=== PATIENT | female | born 1975 | race Caucasian/White ===

== ENCOUNTER 2017-01-18 00:34 | Emergency (ER) | payer OTHER ==
[2017-01-18 00:41] VITALS: RESP 18
[2017-01-18] MEDS ORDERED: ONDANSETRON 4 MG/2 ML VIAL IVP STA (01:03)
[2017-01-18] MEDS ORDERED: HYDROmorphone 1 MG/ML 1 ML SYRINGE IVP STA (01:03)
[2017-01-18] MEDS ORDERED: KETOROLAC 30 MG/ML 1 ML VIAL IVP STA (01:03)
--- NOTE | 2017-01-18 01:25 | ED ---
General Adult HPI - General Chief complaint: Extremity Injury, Upper Stated complaint: R Arm Pain/Swelling Time Seen by Provider: 01/18/17 00:48 Source: patient Mode of arrival: ambulatory Limitations: no limitations - History of Present Illness Initial comments: 31-year-old female patient presents to emergency department today for complaints of right hand swelling and pain. Patient states that this started last evening. States that pain increases when she tries to extend her fingers. Patient did have similar symptoms in the left hand 4 days ago that has resolved. She denies any injury to the hand or arm. She states she did recently return from a vacation in [place], she did have some swelling to her bilateral lower extremities that resolved with elevation. Patient states that she has just felt generally unwell since returning from the trip. Patient denies any fever or chills. Any other current joint swelling, redness, or pain. She denies any other symptoms. - Related Data Home Medications Medication Instructions Recorded Confirmed Ibuprofen [Motrin] 3 tab PO Q6HR PRN 01/20/15 01/20/15 Previous Rx's Medication Instructions Recorded traMADol HCl [Ultram] 50 mg PO Q6H PRN #30 tab 01/21/15 methylPREDNISolone [Medrol Dose 4 mg PO DIRECTED #1 pack 01/18/17 Pack] traMADol HCl [Ultram] 50 mg PO Q4H PRN #20 tab 01/18/17 Allergies Allergy/AdvReac Type Severity Reaction Status Date / Time acetaminophen [From Vicodin] Allergy Nausea & Verified 01/20/15 10:56 Vomiting aspirin Allergy Rash/Hives Verified 01/20/15 10:56 codeine Allergy Nausea & Verified 01/20/15 10:56 Vomiting hydrocodone bitartrate Allergy Nausea & Verified 01/20/15 10:56 [From Vicodin] Vomiting meperidine HCl [From Demerol] Allergy Dyspnea Verified 01/20/15 10:56 Penicillins Allergy Rash/Hives Verified 01/20/15 10:56 Review of Systems ROS Statement: Those systems with pertinent positive or pertinent negative responses have been documented in the HPI. ROS Other: All systems not noted in ROS Statement are negative. Past Medical History Past Medical History: Hyperlipidemia Additional Past Medical History / Comment(s): BACK LIPOMA; LT CALF NEVUS. FEW VARICOSE VEINS. History of Any Multi-Drug Resistant Organisms: None Reported Past Surgical History: Orthopedic Surgery Additional Past Surgical History / Comment(s): RT 5TH FINGER SURG. Past Anesthesia/Blood Transfusion Reactions: No Reported Reaction Past Psychological History: Anxiety Additional Psychological History / Comment(s): NO TX Smoking Status: Current every day smoker Past Alcohol Use History: Occasional Additional Past Alcohol Use History / Comment(s): SMOKES 1 PPD Past Drug Use History: Marijuana Additional Drug Use History / Comment(s): DAILY EXCEPT NONE IN PAST WEEK - Past Family History Mother Family Medical History: Cancer General Exam Limitations: no limitations General appearance: alert, in no apparent distress Eye exam: Present: normal appearance, PERRL, EOMI. Absent: scleral icterus, conjunctival injection, periorbital swelling ENT exam: Present: normal exam, mucous membranes moist Neck exam: Present: normal inspection. Absent: tenderness, meningismus, lymphadenopathy Respiratory exam: Present: normal lung sounds bilaterally. Absent: respiratory distress, wheezes, rales, rhonchi, stridor Cardiovascular Exam: Present: regular rate, normal rhythm, normal heart sounds. Absent: systolic murmur, diastolic murmur, rubs, gallop, clicks GI/Abdominal exam: Present: soft, normal bowel sounds. Absent: distended, tenderness, guarding, rebound, rigid Extremities exam: Present: tenderness (Right hand, generalized tenderness.), normal capillary refill, other (Right hand and wrist show mild nonpitting edema. ) Neurological exam: Present: alert, oriented X3, CN II-XII intact Psychiatric exam: Present: normal affect, normal mood Skin exam: Present: warm, dry, intact, normal color. Absent: rash Course Vital Signs 01/18/17 00:39 Temperature 97.5 F L Pulse Rate 88 Respiratory 18 Rate Blood Pressure 135/88 O2 Sat by Pulse 99 Oximetry Medical Decision Making - Medical Decision Making 41-year-old female patient presents to emergency department stay for evaluation of right hand swelling and pain. Lab work was obtained and did show a rheumatoid factor of 88. The patient will be given IV Cytomel jaw. He'll be discharged with a prescription for pain medication and a Medrol Dosepak. Instructions to follow up with web offset press feeder Dr. Richard. Patient instructed to return for any new, worsening, or concerning symptoms. Patient verbalizes understanding and agrees to this plan. - Lab Data Result diagrams: 01/18/17 01:30 01/18/17 01:30 Lab Results 01/18/17 01/18/17 Range/Units 01:30 01:30 WBC 11.1 H (3.8-10.6) k/uL RBC 4.66 (3.80-5.40) m/uL Hgb 14.0 (11.4-16.0) gm/dL Hct 41.1 (34.0-46.0) % MCV 88.2 (80.0-100.0) fL MCH 30.1 (25.0-35.0) pg MCHC 34.1 (31.0-37.0) g/dL RDW 12.7 (11.5-15.5) % Plt Count 328 (150-450) k/uL Neutrophils % 70 % Lymphocytes % 17 % Monocytes % 7 % Eosinophils % 3 % Basophils % 1 % Neutrophils # 7.8 H (1.3-7.7) k/uL Lymphocytes # 1.9 (1.0-4.8) k/uL Monocytes # 0.8 (0-1.0) k/uL Eosinophils # 0.3 (0-0.7) k/uL Basophils # 0.1 (0-0.2) k/uL Sodium 139 (137-145) mmol/L Potassium 4.2 (3.5-5.1) mmol/L Chloride 103 (98-107) mmol/L Carbon Dioxide 28 (22-30) mmol/L Anion Gap 8 mmol/L BUN 13 (7-17) mg/dL Creatinine 0.90 (0.52-1.04) mg/dL Est GFR (MDRD) Af Amer >60 (>60 ml/min/1.73 sqM) Est GFR (MDRD) Non-Af >60 (>60 ml/min/1.73 sqM) Glucose 122 H (74-99) mg/dL Calcium 9.8 (8.4-10.2) mg/dL Total Bilirubin 0.3 (0.2-1.3) mg/dL AST 18 (14-36) U/L ALT 28 (9-52) U/L Alkaline Phosphatase 90 (38-126) U/L C-Reactive Protein 11.6 H (<10.0) mg/L Total Protein 6.4 (6.3-8.2) g/dL Albumin 3.6 (3.5-5.0) g/dL Rheumatoid Factor 88 H (<12) IU/mL Disposition Clinical Impression: Elevated rheumatoid factor, Swelling of right hand Disposition: HOME SELF-CARE Instructions: Arthritis (ED) Additional Instructions: Complete Medrol Dosepak in full. Take pain medications as directed. Follow-up with primary care physician for recheck. Make appointment with web offset press feeder for further evaluation. Prescriptions: methylPREDNISolone [Medrol Dose Pack] 4 mg PO DIRECTED #1 pack traMADol HCl [Ultram] 50 mg PO Q4H PRN #20 tab PRN Reason: Pain Referrals: Yossi Monique MD [Primary Care Provider] - 1-2 days Time of Disposition: 02:53
[2017-01-18 01:53] LABS: Basophils # (A) 0.1 k/uL (0-0.2); Basophils % (A) 1 %; CH 29.5; CHCM 33.5; Eosinophils # (A) 0.3 k/uL (0-0.7); Eosinophils % (A) 3 %; HCT 41.1 % (34.0-46.0); HDW 2.36; Luc # (Auto) 0.18; Luc % (Auto) 2; Lymphocytes # (A) 1.9 k/uL (1.0-4.8); Lymphocytes % (A) 17 %; MCH 30.1 pg (25.0-35.0); MCHC 34.1 g/dL (31.0-37.0); MCV 88.2 fL (80.0-100.0); Mean Platelet Volume 6.6; Monocytes # (A) 0.8 k/uL (0-1.0); Monocytes % (A) 7 %; Neutrophils # (A) 7.8 k/uL (1.3-7.7); Neutrophils % (A) 70 %; RBC 4.66 m/uL (3.80-5.40); RDW 12.7 % (11.5-15.5); WBC 11.1 k/uL (3.8-10.6); WBC (Perox) 11.24
[2017-01-18 02:09] LABS: ALT 28 U/L (9-52); AST 18 U/L (14-36); Alkaline Phosphatase 90 U/L (38-126); Anion Gap 8 mmol/L; Blood Urea Nitrogen 13 mg/dL (7-17); C Reactive Protein 11.6 mg/L (<10.0); Calcium 9.8 mg/dL (8.4-10.2); Carbon Dioxide 28 mmol/L (22-30); Chloride 103 mmol/L (98-107); Glucose 122 mg/dL (74-99); Non-African American GFR(MDRD) >60 (>60 ml/min/1.73 sqM); Potassium 4.2 mmol/L (3.5-5.1); Rheumatoid Factor, Qnt 88 IU/mL (<12); Sodium 139 mmol/L (137-145); Total Bilirubin 0.3 mg/dL (0.2-1.3); Total Protein 6.4 g/dL (6.3-8.2)
[2017-01-18] MEDS ORDERED: methylPREDNISolone SOD SUCCI 125 MG/2 ML VIAL IV STA (02:47)
[2017-01-18 03:13] VITALS: BP 115/69; PULSE 76; TEMP 97.8
== END 2017-01-18 03:20 | disposition home or self-care (01) ==
LOC: EC 00:34
DX: R76.8 Other specified abnormal immunological findings in serum (principal); M79.89 Other specified soft tissue disorders; F17.200 Nicotine dependence, unspecified, uncomplicated; Z86.018 Personal history of other benign neoplasm; Z53.20 Procedure and treatment not carried out because of patient's decision for unspecified reasons; Z88.5 Allergy status to narcotic agent; Z88.6 Allergy status to analgesic agent; Z88.0 Allergy status to penicillin
CPT/HCPCS: 99283; 96374; 96375 ×2; 36415; 80053; 85025; 86140; 86431; 86038; J2930; J2405; J1885

== ENCOUNTER 2019-04-06 19:39 | Emergency (ER) | payer OTHER ==
[2019-04-06 19:49] VITALS: RESP 16
[2019-04-06] MEDS ORDERED: IBUPROFEN 600 MG TAB PO STA (20:33)
[2019-04-06] MEDS ORDERED: methylPREDNISolone SOD SUCCI 125 MG/2 ML VIAL IM STA (20:33)
[2019-04-06] MEDS ORDERED: predniSONE 50 MG TAB PO STA (20:35)
--- NOTE | 2019-04-06 20:55 | ED ---
General Adult HPI - General Chief complaint: Extremity Problem,Nontraumatic Stated complaint: RA Pain Time Seen by Provider: 04/06/19 20:00 Source: patient, RN notes reviewed, old records reviewed Mode of arrival: ambulatory - History of Present Illness Initial comments: 43-year-old female patient past history of rheumatoid arthritis presents to ED for reported R exacerbation. Patient reports that last 2 days she has had pain in her hands and wrists extending up her arm. Patient states that this feels similar to her that she experienced in the past. Patient currently on met hotrexate for this. Patient has follow-up with special events coordinator. Patient denies any other complaints. Denies any chest pain shortness with abdominal pain nausea vomiting or diarrhea. Denies any fevers or chills. Systemic: Pt denies fatigue, fever/chills, rash. Pt denies weakness, night sweats, weight loss. Neuro: Pt denies headache, visual disturbances, syncope or pre-syncope. HEENT: Pt denies ocular discharge or irritation, otalgia, rhinorrhea, pharyngitis or notable lymphadenopathy. Cardiopulmonary: Pt denies chest pain, SOB, heart palpitations, dyspnea on exertion. Abdominal/GI: Pt denies abdominal pain, n/v/d. : Pt denies dysuria, burning w/ urination, frequency/urgency. Denies new onset urinary or bowel incontinence. MSK: Pt denies loss of strength or function in extremities. Neuro: Pt denies new onset weakness, paresthesias. - Related Data Home Medications Medication Instructions Recorded Confirmed Folic Acid 1 mg PO DAILY 04/06/19 04/06/19 Methotrexate Sodium [Methotrexate] 15 mg PO TU 04/06/19 04/06/19 Previous Rx's Medication Instructions Recorded predniSONE 50 mg PO DAILY #4 tab 04/06/19 Allergies Allergy/AdvReac Type Severity Reaction Status Date / Time acetaminophen [From Vicodin] Allergy Nausea & Verified 04/06/19 20:01 Vomiting aspirin Allergy Rash/Hives Verified 04/06/19 20:01 codeine Allergy Nausea & Verified 04/06/19 20:01 Vomiting hydrocodone bitartrate Allergy Nausea & Verified 04/06/19 20:01 [From Vicodin] Vomiting meperidine HCl [From Demerol] Allergy Dyspnea Verified 04/06/19 20:01 Penicillins Allergy Rash/Hives Verified 04/06/19 20:01 Review of Systems ROS Statement: Those systems with pertinent positive or pertinent negative responses have been documented in the HPI. ROS Other: All systems not noted in ROS Statement are negative. Past Medical History Past Medical History: Hyperlipidemia Additional Past Medical History / Comment(s): BACK LIPOMA; LT CALF NEVUS. FEW VARICOSE VEINS. History of Any Multi-Drug Resistant Organisms: None Reported Past Surgical History: Orthopedic Surgery Additional Past Surgical History / Comment(s): RT 5TH FINGER SURG. Past Anesthesia/Blood Transfusion Reactions: No Reported Reaction Past Psychological History: Anxiety Smoking Status: Current every day smoker Past Alcohol Use History: Occasional Past Drug Use History: Marijuana - Past Family History Mother Family Medical History: Cancer General Exam - General Exam Comments Initial Comments: Constitutional: NAD, AOX3, Pt has pleasant affect. HEENT: NC/AT, trachea midline, neck supple, no lymphadenopathy. Posterior p harynx non erythematous, without exudates. External ears appear normal, without discharge. Mucous membranes moist. Eyes PERRLA, EOM intact. There is no scleral icterus. No pallor noted. Cardiopulmonary: RRR, no murmurs, rubs or gallops, no JVD noted. Lungs CTAB in anterior and posterior gorman. No peripheral edema. Abdominal exam: Abdomen soft and non-distended. Abdomen non-tender to palpation in all 4 quadrants. Bowel sounds active in LLQ. No hepatosplenomegaly. No ecchymosis Neuro: CN II-XII grossly intact. No nuchal rigidity. No raccon eyes, no jeronimo sign, no hemotympanum. No cervical spinal tenderness. MSK: Right hand and wrist mildly tender to palpation. Pain with range of motion. Range of motion slightly limited secondary to pain. No erythema. Cap refill less than 2 seconds, radial pulse +2. Sensation intact. No posterior calf tenderness bilaterally, homans sign negative bilaterally. Posterior tibialis and radial pulse +2 bilaterally. Sensation intact in upper and lower extremities. Full active ROM in upper and lower extremities, 5/5 stregnth. Course Vital Signs 04/06/19 19:47 Temperature 98.2 F Pulse Rate 93 Respiratory 16 Rate Blood Pressure 125/79 O2 Sat by Pulse 100 Oximetry Medical Decision Making - Medical Decision Making 43-year-old female patient past history of rheumatoid arthritis presents to ED for reported R exacerbation. Patient reports that last 2 days she has had pain in her hands and wrists extending up her arm. Patient states that this feels similar to her that she experienced in the past. Patient currently on methotrexate for this. Patient has follow-up with special events coordinator. Patient denies any other complaints. Denies any chest pain shortness with abdominal pain nausea vomiting or diarrhea. Denies any fevers or chills. Pt VSS, afebrile. Physical exam displayed: Right hand and wrist mildly tender to palpation. Pain with range of motion. Range of motion slightly limited secondary to pain. No erythema. Cap refill less than 2 seconds, radial pulse +2. Sensation intact. Patient denied any imaging. Patient placed on steroid burst. We'll follow up with special events coordinator and primary care provider tomorrow. At patient request pt giving one dose of morphine in ED. Pt states that she gets nausea and occasional itching from codeine but does not have true allergy. Case discussed with Dr. Dowling. Disposition Clinical Impression: Arthralgia Disposition: HOME SELF-CARE Condition: Stable Instructions (If sedation given, give patient instructions): Arthralgia (ED) Additional Instructions: Patient to adhere to previously discussed treatment plan and will take medication(s) as directed. Patient to follow up with PCP in 1-2 days. Patient to return to ED if symptoms do not improve. Follow up with special events coordinator and PCP tomorrow. Return to ER if condition worsens. Prescriptions: predniSONE 50 mg PO DAILY #4 tab Is patient prescribed a controlled substance at d/c from ED?: No Referrals: Yossi Monique MD [Primary Care Provider] - 1-2 days
[2019-04-06] MEDS ORDERED: MORPHINE SULFATE 4 MG/ML SYRINGE IM STA (21:15)
[2019-04-06 22:15] VITALS: BP 122/87; PULSE 90; TEMP 98.1
== END 2019-04-06 22:14 | disposition home or self-care (01) ==
LOC: EC 19:39
DX: M25.50 Pain in unspecified joint (principal); M06.9 Rheumatoid arthritis, unspecified; F17.200 Nicotine dependence, unspecified, uncomplicated; Z79.899 Other long term (current) drug therapy; Z88.0 Allergy status to penicillin; Z88.5 Allergy status to narcotic agent; Z88.6 Allergy status to analgesic agent
CPT/HCPCS: 99283; 96372; J2270; J7512

== ENCOUNTER 2022-05-27 22:55 | Emergency (ER) | payer OTHER ==
[2022-05-27 23:03] VITALS: BP 103/74; PULSE 46; RESP 16; TEMP 97.9
[2022-05-27] MEDS ORDERED: DIPH,PERTUS(ACELL)TETVAC-LF 0.5 ML VIAL IM ONE (23:20)
[2022-05-27] MEDS ORDERED: LIDOCAINE 1% INJ 10MG/ML (20 ML MDV) SQ ONE (23:20)
--- NOTE | 2022-05-28 00:08 | ED ---
Wound/Laceration HPI - General Chief Complaint: Wound/Laceration Stated Complaint: Laceration Right Leg Time Seen by Provider: 05/27/22 23:17 Source: patient Mode of arrival: ambulatory Limitations: no limitations - History of Present Illness Initial Comments: Patient is a 46-year-old female presenting with chief complaint of right leg laceration. Patient states that she was outside chasing her dogs when she scraped the leg on a piece avoid on the ground. Patient does not remember when her last tetanus shot was. She has full range of motion of the extremity. No numbness, tingling, weakness, redness, swelling. - Related Data Home Medications Medication Instructions Recorded Confirmed Folic Acid 1 mg PO DAILY 04/06/19 04/06/19 metHOTREXate sodium [Methotrexate] 15 mg PO TU 04/06/19 04/06/19 Previous Rx's Medication Instructions Recorded predniSONE 50 mg PO DAILY #4 tab 04/06/19 Allergies Allergy/AdvReac Type Severity Reaction Status Date / Time acetaminophen [From Vicodin] Allergy Nausea & Verified 05/27/22 23:03 Vomiting aspirin Allergy Rash/Hives Verified 05/27/22 23:03 codeine Allergy Nausea & Verified 05/27/22 23:03 Vomiting hydrocodone bitartrate Allergy Nausea & Verified 05/27/22 23:03 [From Vicodin] Vomiting meperidine HCl [From Demerol] Allergy Dyspnea Verified 05/27/22 23:03 Penicillins Allergy Rash/Hives Verified 05/27/22 23:03 Review of Systems ROS Statement: Those systems with pertinent positive or pertinent negative responses have been documented in the HPI. ROS Other: All systems not noted in ROS Statement are negative. Past Medical History Past Medical History: Hyperlipidemia Additional Past Medical History / Comment(s): BACK LIPOMA; LT CALF NEVUS. FEW VARICOSE VEINS. History of Any Multi-Drug Resistant Organisms: None Reported Past Surgical History: Orthopedic Surgery Additional Past Surgical History / Comment(s): RT 5TH FINGER SURG. Past Anesthesia/Blood Transfusion Reactions: No Reported Reaction Past Psychological History: Anxiety Smoking Status: Current every day smoker Past Alcohol Use History: Occasional Past Drug Use History: Marijuana - Past Family History Mother Family Medical History: Cancer General Exam Limitations: no limitations General appearance: alert, in no apparent distress Head exam: Present: atraumatic, normocephalic, normal inspection Eye exam: Present: normal appearance, EOMI. Absent: scleral icterus, periorbital swelling Neck exam: Present: normal inspection Right Lower Leg exam: Present: laceration (4 cm) Neurological exam: Present: alert, oriented X3, CN II-XII intact Psychiatric exam: Present: normal affect, normal mood Course Vital Signs 05/27/22 23:01 Temperature 97.9 F Pulse Rate 46 L Respiratory 16 Rate Blood Pressure 103/74 O2 Sat by Pulse 99 Oximetry Procedures - Laceration Laceration #1 Consent Obtained: verbal consent Indication: laceration Site: lower extremity Size (cm): 4 Description: linear Depth: simple, single layer Anesthetic Used: lidocaine 1%, without epi Anesthesia Technique: local infiltration Amount (mls): 3 Pre-repair: wound explored, irrigated extensively Type of Sutures: nylon Size of Sutures: 4-0 Number of Sutures: 3 Technique: simple, interrupted Patient Tolerated Procedure: well Medical Decision Making - Medical Decision Making Patient is a 46-year-old female presenting with chief complaint of right leg laceration. She cut her leg on a piece of foot on the ground when chasing her dog's. Does not on her last tetanus vaccination was on examination there is a 4 cm laceration to the right lower leg. No obvious foreign body, full range of motion and sensation is intact. Patient's tetanus was updated. Wound was an esthetized with 1% lidocaine, irrigated with 1 L sterile water, and 3 simple interrupted sutures were placed using 4-0 nylon. Instructed on wound care. Sutures may be removed in 10-14 days. Follow-up with PCP. Report back to ER with any new or worsening symptoms. Discussed return parameters and answered all questions. Patient conveyed verbal understanding and agreed to the plan. I discussed this case with my attending Dr. Barrow. Disposition Clinical Impression: Laceration Disposition: HOME SELF-CARE Condition: Good Instructions (If sedation given, give patient instructions): Care For Your Stitches (ED), Laceration (ED) Additional Instructions: Sutures may be removed in 10-14 days, this can be done here, your PCP, or at a local urgent care. Keep the wound clean and dry. Avoid submerging the wound. Clean with soap and water. Monitor for any signs of infection, including but not limited to redness, swelling, warmth, pain, discharge, fever, chills. Report back to ER if any new or worsening symptoms. Follow-up with PCP. Is patient prescribed a controlled substance at d/c from ED?: No Referrals: Yossi Monique MD [Primary Care Provider] - 1-2 days Time of Disposition: 00:08
== END 2022-05-28 00:24 | disposition home or self-care (01) ==
LOC: EC 22:55
DX: S81.811A Laceration without foreign body, right lower leg, initial encounter (principal); W54.8XXA Other contact with dog, initial encounter; Z88.6 Allergy status to analgesic agent; Z88.8 Allergy status to other drugs, medicaments and biological substances; Z88.0 Allergy status to penicillin; E78.5 Hyperlipidemia, unspecified; F17.200 Nicotine dependence, unspecified, uncomplicated
CPT/HCPCS: 90715; 12002; 99282; 90471; J2001

== ENCOUNTER 2023-08-28 20:51 | Emergency (ER) | payer OTHER ==
[2023-08-28] MEDS ORDERED: SODIUM CHLORIDE 0.9% 1,000 ML IV STA (21:17)
[2023-08-28] MEDS ORDERED: ONDANSETRON 4 MG/2 ML VIAL IVP STA (21:17)
[2023-08-28] MEDS ORDERED: KETOROLAC 15 MG/ML 1 ML VIAL IVP STA (21:18)
[2023-08-28 21:20] VITALS: TEMP 98.2
--- NOTE | 2023-08-28 21:46 | ED ---
Back Pain HPI - General Chief Complaint: Back Pain/Injury Stated Complaint: Kidney Pain, Unable to Urinate Time Seen by Provider: 08/28/23 21:04 Source: patient, RN notes reviewed Mode of arrival: ambulatory Limitations: no limitations - History of Present Illness Initial Comments: This is a 48 year old female who presents to the emergency department for left sided back pain. States that this started about 3 days ago. This does not wrap around into her abdomen. She does report nausea and a decreased appetite. States that she is trying to drink plenty of fluids and feels like she is not able to urinate as much as she should. Denies any injuries. Denies any history of kidney stones or similar problems in the past. MD Complaint: back pain - Related Data Home Medications Medication Instructions Recorded Confirmed Folic Acid 1 mg PO DAILY 04/06/19 04/06/19 metHOTREXate sodium [Methotrexate] 15 mg PO TU 04/06/19 04/06/19 Previous Rx's Medication Instructions Recorded predniSONE 50 mg PO DAILY #4 tab 04/06/19 Ciprofloxacin HCl 500 mg PO BID 7 Days #14 tablet 08/29/23 Ketorolac [Toradol] 10 mg PO Q6HR PRN #15 tab 08/29/23 Ondansetron Odt [Zofran Odt] 4 mg PO Q8HR PRN #15 tab 08/29/23 Allergies Allergy/AdvReac Type Severity Reaction Status Date / Time acetaminophen [From Vicodin] Allergy Nausea & Verified 05/27/22 23:03 Vomiting aspirin Allergy Rash/Hives Verified 05/27/22 23:03 codeine Allergy Nausea & Verified 05/27/22 23:03 Vomiting hydrocodone bitartrate Allergy Nausea & Verified 05/27/22 23:03 [From Vicodin] Vomiting meperidine HCl [From Demerol] Allergy Dyspnea Verified 05/27/22 23:03 Penicillins Allergy Rash/Hives Verified 05/27/22 23:03 Review of Systems ROS Statement: Those systems with pertinent positive or pertinent negative responses have been documented in the HPI. ROS Other: All systems not noted in ROS Statement are negative. Past Medical History Past Medical History: Hyperlipidemia Additional Past Medical History / Comment(s): BACK LIPOMA; LT CALF NEVUS. FEW VARICOSE VEINS. History of Any Multi-Drug Resistant Organisms: None Reported Past Surgical History: Orthopedic Surgery Additional Past Surgical History / Comment(s): RT 5TH FINGER SURG. Past Anesthesia/Blood Transfusion Reactions: No Reported Reaction Past Psychological History: Anxiety Smoking Status: Current every day smoker Past Alcohol Use History: Occasional Past Drug Use History: Marijuana - Past Family History Mother Family Medical History: Cancer General Exam Limitations: no limitations General appearance: alert, in no apparent distress Head exam: Present: atraumatic, normocephalic, normal inspection Respiratory exam: Present: normal lung sounds bilaterally. Absent: respiratory distress, wheezes, rales, rhonchi, stridor Cardiovascular Exam: Present: regular rate, normal rhythm, normal heart sounds. Absent: systolic murmur, diastolic murmur, rubs, gallop, clicks GI/Abdominal exam: Present: soft, normal bowel sounds. Absent: distended, tenderness, guarding, rebound, rigid Back exam: Present: CVA tenderness (L). Absent: CVA tenderness (R) Neurological exam: Present: alert, oriented X3, CN II-XII intact Psychiatric exam: Present: normal affect, normal mood Skin exam: Present: warm, dry, intact, normal color. Absent: rash Course Vital Signs 08/28/23 08/28/23 08/28/23 20:57 22:31 23:58 Temperature 98.2 F Pulse Rate 112 H 89 77 Respiratory 18 16 Rate Blood Pressure 105/72 111/61 O2 Sat by Pulse 100 99 96 Oximetry Medical Decision Making - Medical Decision Making This is a 48-year-old female who presents to the emergency department for left- sided back pain. Was pt. sent in by a medical professional or institution? @ -No Did you speak to anyone other than the patient for history? @ -No Did you review nursing and triage notes? @ -Yes, and I agree, it is accurate with regards to the patient's symptoms. Were old charts reviewed? @ -No Differential Diagnosis? @ -Differential Back Pain: Strain, zoster, cauda equina syndrome, epidural abscess, vertebral osteomyeli tis, discitis, fracture, subluxation, disc herniation, DJD, spinal stenosis, dissection, AAA, pancreatitis, peptic ulcer disease, pyelonephritis, kidney stone, this is not meant to be an all-inclusive list. EKG interpreted by me (3pts min.)? @ -Not obtained X-rays interpreted by me (1pt min.)? @ -Not obtained CT interpreted by me (1pt min.)? @ -Computed tomography scan of the abdomen and pelvis obtained. My interpretation identifies no evidence of a ureteral calculus. U/S interpreted by me (1pt. min.)? @ -Not obtained What testing was considered but not performed? (CT, X-rays, U/S, labs)? Why? @ -None What meds were considered but not given? Why? @ -None Did you discuss the management of the patient with other professionals? @ -No Did you reconcile home meds? @ -No Was smoking cessation discussed for >3mins.? @ -No Was critical care preformed (if so, how long)? @ -No Were there social determinants of health that impacted care today? How? (Homelessness, low income, unemployed, alcoholism, drug addiction, transportation, low edu. Level, literacy, decrease access to med. care, senior care, rehab)? @ -No Was there de-escalation of care discussed even if they declined? (Discuss DNR or withdrawal of care, Hospice)? @ -No What co-morbidities impacted this encounter? (DM, HTN, Smoking, COPD, CAD, Cancer, CVA, Hep., AIDS, mental health diagnosis, sleep apnea, morbid obesity)? @ -None Was patient admitted / discharged? @ -Discharged. Lab work obtained revealing leukocytosis and no other actionable findings. Urinalysis was positive for infection and was sent for culture. Computed tomography scan of the abdomen and pelvis obtained demonstrating mild fullness of the left renal collecting system and no evidence of a ureteral calculus. Findings reviewed with the patient. Given the urinalysis findings with the leukocytosis and left flank pain, symptoms are suggestive of a pyelonephritis. She was given a dose of ceftriaxone in the emergency department. Her symptoms were otherwise well controlled with Toradol, Zofran, and IV fluids, and she felt stable for discharge home at that point. Prescription for ciprofloxacin, Toradol, and Zofran provided with dosing instructions reviewed. She is advised to have close follow-up with her primary care provider for reevaluation. Undiagnosed new problem with uncertain prognosis? @ -None Drug Therapy requiring intensive monitoring for toxicity (Heparin, Nitro, Insulin, Cardizem)? @ -None Were any procedures done? @ -None Diagnosis/symptom? @ -Pyelonephritis Acute, or Chronic, or Acute on Chronic? @ -Acute Uncomplicated (without systemic symptoms) or Complicated (systemic symptoms)? @ -Uncomplicated Side effects of treatment? @ -None Exacerbation, Progression, or Severe Exacerbation] @ -Not applicable Poses a threat to life or bodily function? @ -Unlikely Return precautions reviewed in depth, the patient is instructed to return to the emergency department with any new, worsening, or concerning symptoms. Patient verbalized understanding. This case was discussed in detail with the attending ED physician, Dr. Hammonds. Presentation, findings, and treatment plan discussed in detail as well. - Lab Data Result diagrams: 08/28/23 21:08/28/23 21: Lab Results 08/28/23 08/28/23 08/28/23 Range/Units : 21:: WBC 14.0 H (3.8-10.6) k/uL RBC 4.20 (3.80-5.40) m/uL Hgb 13.2 (11.4-16.0) gm/dL Hct 37.9 (34.0-46.0) % MCV 90.2 (80.0-100.0) fL MCH 31.3 (25.0-35.0) pg MCHC 34.7 (31.0-37.0) g/dL RDW 12.4 (11.5-15.5) % Plt Count 226 (150-450) k/uL MPV 7.7 Neutrophils % 85 % Lymphocytes % 5 % Monocytes % 8 % Eosinophils % 1 % Basophils % 0 % Neutrophils # 11.8 H (1.3-7.7) k/uL Lymphocytes # 0.6 L (1.0-4.8) k/uL Monocytes # 1.1 H (0-1.0) k/uL Eosinophils # 0.2 (0-0.7) k/uL Basophils # 0.0 (0-0.2) k/uL Sodium 133 L (137-145) mmol/L Potassium 3.7 (3.5-5.1) mmol/L Chloride 105 (98-107) mmol/L Carbon Dioxide 19 L (22-30) mmol/L Anion Gap 9 mmol/L BUN 20 H (7-17) mg/dL Creatinine 0.69 (0.52-1.04) mg/dL Est GFR (CKD-EPI)AfAm >90 (>60 ml/min/1.73 sqM) Est GFR (CKD-EPI)NonAf >90 (>60 ml/min/1.73 sqM) Glucose 119 H (74-99) mg/dL Plasma Lactic Acid Saud (0.7-2.0) mmol/L Calcium 9.0 (8.4-10.2) mg/dL Total Bilirubin 0.5 (0.2-1.3) mg/dL AST 30 (14-36) U/L ALT 32 (4-34) U/L Alkaline Phosphatase 97 (38-126) U/L Total Protein 6.4 (6.3-8.2) g/dL Albumin 3.6 (3.5-5.0) g/dL Amylase 52 (30-110) U/L Lipase 113 (23-300) U/L HCG, Qual Not Detected Urine Color Colorless Urine Appearance Cloudy H (Clear) Urine pH 5.5 (5.0-8.0) Ur Specific [place] 1.011 (1.001-1.035) Urine Protein Trace H (Negative) Urine Glucose (UA) Negative (Negative) Urine Ketones Negative (Negative) Urine Blood Negative (Negative) Urine Nitrite Positive H (Negative) Urine Bilirubin Negative (Negative) Urine Urobilinogen <2.0 (<2.0) mg/dL Ur Leukocyte Esterase Small H (Negative) Urine RBC 1 (0-5) /hpf Urine WBC 17 H (0-5) /hpf Ur Squamous Epith Cells 26 H (0-4) /hpf Urine Bacteria Many H (None) /hpf Hyaline Casts 3 H (0-2) /lpf Urine Mucus Rare H (None) /hpf 08/28/23 Range/Units 21:28 WBC (3.8-10.6) k/uL RBC (3.80-5.40) m/uL Hgb (11.4-16.0) gm/dL Hct (34.0-46.0) % MCV (80.0-100.0) fL MCH (25.0-35.0) pg MCHC (31.0-37.0) g/dL RDW (11.5-15.5) % Plt Count (150-450) k/uL MPV Neutrophils % % Lymphocytes % % Monocytes % % Eosinophils % % Basophils % % Neutrophils # (1.3-7.7) k/uL Lymphocytes # (1.0-4.8) k/uL Monocytes # (0-1.0) k/uL Eosinophils # (0-0.7) k/uL Basophils # (0-0.2) k/uL Sodium (137-145) mmol/L Potassium (3.5-5.1) mmol/L Chloride (98-107) mmol/L Carbon Dioxide (22-30) mmol/L Anion Gap mmol/L BUN (7-17) mg/dL Creatinine (0.52-1.04) mg/dL Est GFR (CKD-EPI)AfAm (>60 ml/min/1.73 sqM) Est GFR (CKD-EPI)NonAf (>60 ml/min/1.73 sqM) Glucose (74-99) mg/dL Plasma Lactic Acid Saud 0.7 (0.7-2.0) mmol/L Calcium (8.4-10.2) mg/dL Total Bilirubin (0.2-1.3) mg/dL AST (14-36) U/L ALT (4-34) U/L Alkaline Phosphatase (38-126) U/L Total Protein (6.3-8.2) g/dL Albumin (3.5-5.0) g/dL Amylase (30-110) U/L Lipase (23-300) U/L HCG, Qual Urine Color Urine Appearance (Clear) Urine pH (5.0-8.0) Ur Specific [place] (1.001-1.035) Urine Protein (Negative) Urine Glucose (UA) (Negative) Urine Ketones (Negative) Urine Blood (Negative) Urine Nitrite (Negative) Urine Bilirubin (Negative) Urine Urobilinogen (<2.0) mg/dL Ur Leukocyte Esterase (Negative) Urine RBC (0-5) /hpf Urine WBC (0-5) /hpf Ur Squamous Epith Cells (0-4) /hpf Urine Bacteria (None) /hpf Hyaline Casts (0-2) /lpf Urine Mucus (None) /hpf - Radiology Data Radiology results: report reviewed, image reviewed Disposition Clinical Impression: Pyelonephritis Disposition: HOME SELF-CARE Instructions (If sedation given, give patient instructions): Urinary Tract Infection in Women (ED), Kidney Infection (ED) Additional Instructions: Return to the emergency department with any new, worsening, or concerning symptoms. Take the antibiotic as prescribed for 7 days. Take the Toradol with Tylenol as needed for pain relief. If you choose to take the Toradol, do not take any other anti-inflammatories such as ibuprofen, take one or the other. Take the Zofran up to every 8 hours as needed for nausea and vomiting. Follow up with your primary care provider in 1-2 days. Prescriptions: Ciprofloxacin HCl 500 mg PO BID 7 Days #14 tablet Ketorolac [Toradol] 10 mg PO Q6HR PRN #15 tab PRN Reason: Pain Ondansetron Odt [Zofran Odt] 4 mg PO Q8HR PRN #15 tab PRN Reason: Nausea And Vomiting Is patient prescribed a controlled substance at d/c from ED?: No Referrals: None,Stated [Primary Care Provider] - 1-2 days
[2023-08-28 22:00] LABS: Basophils % (A) 0 %; Eosinophils # (A) 0.2 k/uL (0-0.7); Eosinophils % (A) 1 %; HCT 37.9 % (34.0-46.0); HGB 13.2 gm/dL (11.4-16.0); Lymphocytes # (A) 0.6 k/uL (1.0-4.8); Lymphocytes % (A) 5 %; MCH 31.3 pg (25.0-35.0); MCHC 34.7 g/dL (31.0-37.0); MCV 90.2 fL (80.0-100.0); Mean Platelet Volume 7.7; Monocytes # (A) 1.1 k/uL (0-1.0); Monocytes % (A) 8 %; Neutrophils # (A) 11.8 k/uL (1.3-7.7); Neutrophils % (A) 85 %; Platelet Count 226 k/uL (150-450); RDW 12.4 % (11.5-15.5)
[2023-08-28 22:09] LABS: ALT 32 U/L (4-34); AST 30 U/L (14-36); African American GFR (CKD) >90 (>60 ml/min/1.73 sqM); Albumin 3.6 g/dL (3.5-5.0); Alkaline Phosphatase 97 U/L (38-126); Amylase 52 U/L (30-110); Anion Gap 9 mmol/L; Blood Urea Nitrogen 20 mg/dL (7-17); Carbon Dioxide 19 mmol/L (22-30); Chloride 105 mmol/L (98-107); Glucose 119 mg/dL (74-99); Lipase 113 U/L (23-300); Non-African American GFR(CKD) >90 (>60 ml/min/1.73 sqM); Potassium 3.7 mmol/L (3.5-5.1); Sodium 133 mmol/L (137-145); Total Bilirubin 0.5 mg/dL (0.2-1.3); Total Protein 6.4 g/dL (6.3-8.2)
[2023-08-28 22:28] LABS: HCG,Qualitative Serum Not Detected
[2023-08-28 22:38] VITALS: BP 111/61; RESP 16
[2023-08-28 23:09] LABS: Appearance,Urine Cloudy (Clear); Bacteria,Urine Many /hpf; Bilirubin,Urine Negative (Negative); Blood,Urine Negative (Negative); Color,Urine Colorless; Glucose,Urine (UA) Negative (Negative); Hyaline Casts,Urine 3 /lpf (0-2); Ketones,Urine Negative (Negative); Leukocyte Esterase,Urine Small (Negative); Mucus,Urine Rare /hpf; Nitrite,Urine Positive (Negative); PH, Urine 5.5 (5.0-8.0); Protein,Urine Trace (Negative); RBC,Urine 1 /hpf (0-5); Specific Gravity,Urine 1.011 (1.001-1.035); Squamous Epithelial Cell,Urine 26 /hpf (0-4); Urobilinogen,Urine <2.0 mg/dL (<2.0); WBC,Urine 17 /hpf (0-5)
[2023-08-28] MEDS ORDERED: cefTRIAXone IN SWFI 1,000 MG/10 ML SYRINGE IVP STA (23:18)
[2023-08-29 00:26] VITALS: PULSE 77
[2023-08-29] MEDS ORDERED: traMADol 50 MG STARTER PACK 3 TAB BTL PO STA (00:31)
[2023-08-29] MEDS ORDERED: ONDANSETRON 4 MG ODT STARTER PACK 2 TAB BTL PO STA (00:33)
--- NOTE | 2023-08-29 00:35 | CT ---
EXAM: CT Abdomen and Pelvis Without Intravenous Contrast CLINICAL HISTORY: ITS.REASON CT Reason: Left flank pain TECHNIQUE: Axial computed tomography images of the abdomen and pelvis without intravenous contrast. CTDI is 8.36 mGy and DLP is 491.5 mGy-cm. This CT exam was performed using one or more of the following dose reduction techniques: automated exposure control, adjustment of the mA and/or kV according to patient size, and/or use of iterative reconstruction technique. COMPARISON: No relevant prior studies available. FINDINGS: Lung bases: Unremarkable. No mass. No consolidation. ABDOMEN: Liver: Unremarkable. No focal hepatic lesion. Gallbladder and bile ducts: Contracted gallbladder. No calcified stones. No ductal dilation. Pancreas: Unremarkable. No ductal dilation. Spleen: Unremarkable. Normal spleen. Adrenals: Unremarkable. No mass. Kidneys and ureters: No renal stones or hydronephrosis. Minimal fullness of the left renal collecting system. Evaluation of the ureter is limited. Consider CT urogram confirm no ureteral stone. No stone at the UVJ. Stomach and bowel: Unremarkable. No obstruction. No mucosal thickening. PELVIS: Appendix: No findings to suggest acute appendicitis. Bladder: Unremarkable. No stones. Reproductive: Unremarkable as visualized. ABDOMEN and PELVIS: Intraperitoneal space: Unremarkable. No free air. No significant fluid collection. Bones/joints: Degenerative changes of the spine. No acute fracture. No dislocation. Soft tissues: Unremarkable. Vasculature: Unremarkable. No abdominal aortic aneurysm. Lymph nodes: Unremarkable. No enlarged lymph nodes. IMPRESSION: No renal stones or hydronephrosis. Minimal fullness of the left renal collecting system. Evaluation of the ureter is limited. Consider CT urogram confirm no ureteral stone. No stone at the UVJ.
== END 2023-08-29 01:13 | disposition home or self-care (01) ==
LOC: EC 20:51
DX: N12 Tubulo-interstitial nephritis, not specified as acute or chronic (principal); F17.200 Nicotine dependence, unspecified, uncomplicated; F12.90 Cannabis use, unspecified, uncomplicated; Z88.6 Allergy status to analgesic agent; Z88.0 Allergy status to penicillin; Z88.2 Allergy status to sulfonamides; Z88.8 Allergy status to other drugs, medicaments and biological substances; Z86.59 Personal history of other mental and behavioral disorders
CPT/HCPCS: 51798; 36415; 80053; 82150; 83605; 83690; 85025; 81001; 84703; 87086; 74176; 99285; 96374; 96375 ×2; 96361; J2405; J0696; J1885; 87040